=== PATIENT | female | born 1970 | race Caucasian/White ===

== ENCOUNTER 2016-11-15 17:10 | Emergency (ER) | payer MEDICAID ==
[~2016-11-15] VITALS: Ht 162.6 cm; Wt 101.2 kg
[2016-11-15 19:32] VITALS: BP 113/75
== END 2016-11-15 19:32 | disposition home or self-care (01) ==
LOC: ED 17:10
DX: K57.92 Diverticulitis of intestine, part unspecified, without perforation or abscess without bleeding (principal); R19.7 Diarrhea, unspecified; E66.9 Obesity, unspecified; I10 Essential (primary) hypertension
CPT/HCPCS: J0696

== ENCOUNTER 2017-01-12 20:31 | Emergency (ER) | payer MEDICAID ==
[2017-01-12 22:16] VITALS: BP 130/90
== END 2017-01-12 22:16 | disposition home or self-care (01) ==
LOC: ED 20:31
DX: N12 Tubulo-interstitial nephritis, not specified as acute or chronic (principal); I10 Essential (primary) hypertension; K57.90 Diverticulosis of intestine, part unspecified, without perforation or abscess without bleeding; K50.90 Crohn's disease, unspecified, without complications; J45.909 Unspecified asthma, uncomplicated; Z88.2 Allergy status to sulfonamides; Z79.1 Long term (current) use of non-steroidal anti-inflammatories (NSAID); Z87.442 Personal history of urinary calculi
CPT/HCPCS: J1885

== ENCOUNTER 2017-03-21 12:06 | Emergency (ER) | payer OTHER ==
[~2017-03-21] VITALS: Ht 165.1 cm; Wt 103.0 kg
[2017-03-21 13:43] VITALS: BP 142/78
== END 2017-03-21 13:43 | disposition home or self-care (01) ==
LOC: ED 12:06
DX: N39.0 Urinary tract infection, site not specified (principal); I10 Essential (primary) hypertension; Z90.49 Acquired absence of other specified parts of digestive tract; Z88.2 Allergy status to sulfonamides; Z87.19 Personal history of other diseases of the digestive system
CPT/HCPCS: J1885

== ENCOUNTER 2017-05-03 18:23 | Emergency (ER) | payer MEDICAID ==
[~2017-05-03] VITALS: Ht 162.6 cm; Wt 102.5 kg
[2017-05-03 19:58] LABS: UA SPECIFIC GRAVITY 1.015 (1.005-1.035); microscopic required? YES; urine erythrocyte TRACE (NEGATIVE)
[2017-05-03 20:55] VITALS: BP 103/74
== END 2017-05-03 20:55 | disposition home or self-care (01) ==
LOC: ED 18:23
PROVIDERS: Emergency Medicine
DX: R10.9 Unspecified abdominal pain (principal); I10 Essential (primary) hypertension; Z88.2 Allergy status to sulfonamides
CPT/HCPCS: J3010; Q0092; Q0162

== ENCOUNTER 2017-05-31 05:56 | Emergency (ER) | payer OTHER ==
[2017-05-31 07:14] VITALS: BP 120/76
== END 2017-05-31 07:14 | disposition home or self-care (01) ==
LOC: ED 05:56
DX: R10.32 Left lower quadrant pain (principal); R11.2 Nausea with vomiting, unspecified; R19.7 Diarrhea, unspecified; K50.90 Crohn's disease, unspecified, without complications; J45.909 Unspecified asthma, uncomplicated; I10 Essential (primary) hypertension; Z88.2 Allergy status to sulfonamides; Z90.89 Acquired absence of other organs
CPT/HCPCS: Q0162

== ENCOUNTER 2017-06-09 19:46 | Inpatient (IN) | payer OTHER ==
[~2017-06-09] VITALS: Ht 162.6 cm; Wt 104.9 kg
--- NOTE | 2017-06-09 22:25 | NUR ---
MSE COMPLETED BY DR CALABRESE
--- NOTE | 2017-06-09 22:47 | NUR ---
PT PICKED UP BY CT VIA GURNEY, NO SX OF DISTRESS NOTED.
[2017-06-09 23:00] LABS: UA SPECIFIC GRAVITY 1.015 (1.005-1.035); microscopic required? YES; urine erythrocyte NEGATIVE (NEGATIVE)
[2017-06-09 23:17] LABS: BASOPHIL % 0.9 % (0-2); PLATELET COUNT 365 x10^3mcL (130-400)
[2017-06-09 23:18] LABS: RED CELL DISTRIBUTION WIDTH 15.1 % (11.5-14.5)
[2017-06-09 23:28] LABS: CARBON DIOXIDE 28.9 mmol/L (21-32); CHLORIDE SERUM 103 mmol/L (98-107); CREATININE SERUM 0.8 mg/dL (0.6-1.0); GFR1 > 60 mL/min; GLUCOSE SERUM 105 mg/dL (74-106); POTASSIUM SERUM 3.9 mmol/L (3.5-5.1); SODIUM SERUM 139 mmol/L (136-145)
[2017-06-09 23:45] LABS: ALBUMIN 3.6 g/dL (3.4-5.0); ALKALINE PHOSPHATASE 76 U/L (46-116); ALT/SGPT 25 U/L (14-59); AST/SGOT 17 U/L (15-37); BILIRUBIN TOTAL 0.3 mg/dL (0.20-1.00); TOTAL PROTEIN, SERUM 7.5 g/dL (6.4-8.2)
[2017-06-09] MEDS ORDERED: LISINOPRIL2.5 MG PO (23:46)
[2017-06-09] MEDS ORDERED: OMEPRAZOLE10 M1 PO (23:46)
[2017-06-09] MEDS ORDERED: MICROZIDE12.5 MG PO (23:47)
[2017-06-10] VITALS (7 sets, daily range): BP systolic 95–111; BP diastolic 56–61
--- NOTE | 2017-06-10 00:23 | NUR ---
ADMISSION REPORT GIVEN TO ANITA DIAZ EXT [id number] TO CONTINUE CARE.
--- NOTE | 2017-06-10 00:45 | NUR ---
REC'D PT FROM ER VIA CARLI. PT IS AAOX4. TELE #23 SR. RESP EVEN AND UNLABORED. NO SOB NOTED. ABD SOFT. BS ACTIVE X4. PT DENIES ABD PAIN AT THIS TIME. PT C/O MILD NAUSEA. PT REPORTS HAVING DIARRHEA. IV NOTED TO . INTACT AND PATENT. ORIENTED PT TO CALL LIGHT. BED IN LOWEST POSITION. WILL ENDORSE TO PRIMARY RN.
--- NOTE | 2017-06-10 01:25 | NUR ---
PT COMFORTABLE AT THIS TIME, REMAINED NPO, IVF INFUSING NS @ 120CC/HR IV ACCESS LH PATENT NON INFIL, SCD'S APPLIED FOR DVT PROPHYLAXIS, SR IN THE MONITOR TELE #23, CALL LIGHT AT REACH, WILL CONT TO MONITOR.
[2017-06-10 02:01] LABS: MAGNESIUM 1.9 mg/dL (1.8-2.4); PHOSPHOROUS 3.3 mg/dL (2.5-4.9)
[2017-06-10 02:09] LABS: CHOLESTEROL/HDL RATIO 3.5
[2017-06-10 02:29] LABS: FREE T4 1.15 ng/dL (0.76-1.46); FREE THYROXINE INDEX 3.8 ug/dL (1.4-4.5); T4(THYROXINE) 11.6 ug/dL (4.7-13.3)
[2017-06-10 03:01] LABS: T3 TOTAL 1.22 ng/mL
[2017-06-10 05:46] LABS: AMPHETAMINE QUAL UR NONE DETECTED (NEG <=1000)
--- NOTE | 2017-06-10 06:13 | NUR ---
PT AWAKE C/O LOWER ABDL PAIN MOSTLY AT THE GROIN AREA, VOIDING FREELY NO HEMATURIA, PAIN SCALED 6/10 PER ASSESSMENT NORCO PO GIVEN PER PRN ORDER, REPOSITIONED SELF TO COMFORT V/S STABLE AND RECORDED, IVF INFUSING WELL SR IN THE MONITOR NO CP OR PRESSURE, WILL CONT TO MONITOR.
--- NOTE | 2017-06-10 07:45 | NUR ---
RECEIVED PATIENT FROM NIGHT NURSE. PATIENT SLEEPING, RESPIRATIONS REGULAR. MONITOR SHOWING SINUS RHYTHM; RATE 69. IV INFUSING NS AT 120ML/HR. NPO.
--- NOTE | 2017-06-10 10:18 | NUR ---
AT 0800 - PAITENT AWAKE, ALERT AND ORIENTED. PATIENT REPORTS GOOD RELIEF OF PAIN WITH NORCO. NO NAUSEA. AT 0825 - SEEN BY DR NICOLE DURING MORNING ROUNDS. MEDICAL TEAM DOCTORS, JULIA COX AND MYSELF PRIMARY NURSE ALSO PRESENT. DR NICOLE SPOKE WITH PATIENT ABOUT DX AND PLAN OF TREATMENT. PATIENT VERBALIZED UNDERSTANDING. COMMENCED ON ZOSYN. FIRST DOSE IN PROGRESS.
--- NOTE | 2017-06-10 13:50 | NUR ---
DIABETIC EDUCATION INITIATED. SPOKE WITH PATIENT ABOUT PREDIABTES AND DIET WELL DIVERTICULITIS AND DIVERTICULOSIS AND DIET. PRINTED INFORMATION PROVIDED. PATIENT EXPRESSED MOTIVATION FOR LIFESTYLE MODIFICATIONS.
--- NOTE | 2017-06-10 15:07 | NUR ---
cancellation requested for echocardiogram
--- NOTE | 2017-06-10 18:54 | NUR ---
VSS AND WNL. AFEBRILE. PAIN UNDER CONTROL WITH NORCO. IV INFUSION REMAINS AT 120ML/HR. REMAINS NPO EXCEPT MEDS. AMBULATORY TO BATHROOM FOR TOILET NEEDS. WILL ENDORSE CARE TO NIGHT NURSE.
--- NOTE | 2017-06-10 20:29 | NUR ---
DR BRAXTON OK'D PT TO HAVE FULL LIQ DIET TONIGHT, JELLO, JUICE OFFERED HERO WELL NO N/V, DENIES ABDL PAIN, IVF NS CHANGED TO 80CC/HR IV ACCESS @ LH PATENT NON INFIL, TELE #23 INPLACED SR IN THE MONITOR, NO CP OR PRESSURE, NO DISTRESS LUNGS CTA, SHIFT ASSESSMENT DONE, NEEDS MET, CALL LIGHT AT REACH, CONT TO MONITOR AND PROCEED TO CURRENT PLAN OF CARE.
--- NOTE | 2017-06-11 02:42 | NUR ---
PT ASLEEP NO S/SX OF PAIN OR DISCOMFORTS, BREATHING EASY AND SPONT, IVF INFUSING WELL NO INFIL, SCD'S OFF AT THIS TIME PER REQUEST, CHECKED AT INTERVALS.
[2017-06-11 05:01] VITALS: BP 100/60
[2017-06-11 06:03] LABS: BASOPHIL % 0.5 % (0-2); PLATELET COUNT 279 x10^3mcL (130-400); RED CELL DISTRIBUTION WIDTH 14.5 % (11.5-14.5)
--- NOTE | 2017-06-11 06:14 | NUR ---
NO SIGNIFICANT CHANGES DURING THE SHIFT, PER PT SHE SLEPT WELL LAST NIGHT AND SURPRISED NOT HAVING PAIN, IVF INFUSING WELL, DUE MEDS GIVEN, BS 105 MG/DL, SR IN THE MONITOR, CONT TO MONITOR.
--- NOTE | 2017-06-11 07:30 | NUR ---
PATIENT IS SITTING UP IN BED, AWAKE ALERT AND ORIENTED. TELE 23 NSR. IVF INFUSING WELL TO LEFT HAND. AMBULATES AD GEORGE TO THE BATHROOM DENIES ANY ABD PAIN OR DISCOMFORT. LUNGS CLEAR ON ROOM AIR. NO ACUTE DISTRESS NOTED. WILL CONTINUE TO MONITOR.
--- NOTE | 2017-06-11 08:07 | NUR ---
Pt REFUSED HHN TX AT THIS TIME. KNOWS TO CALL RESP IF SOB.
--- NOTE | 2017-06-11 08:12 | NUR ---
DR CHURCH AND MEDICAL TEAM INTO SEE PATIENT AND DISCUSS PLAN OF CARE.
[2017-06-11 09:57] VITALS: BP 119/47
--- NOTE | 2017-06-11 11:00 | NUR ---
I HAVE REVIEWED THE DATA COLLECTION BY RANULFO (NAME):CESAR ENTERED ON (DATE/TIME):06/11/1710/23/1099 AM I CONCUR WITH THE DATA AND ANY EXCEPTIONS OR COMMENTS ARE LISTED BELOW:
--- NOTE | 2017-06-11 11:00 | NUR ---
PATIENT'S PLAN OF CARE WAS DISCUSSED AND REVIEWED WITH SLUG PRESS OPERATOR:CESAR
--- NOTE | 2017-06-11 12:28 | NUR ---
PATIENT IS SITTING UP IN BED. ALERT ORIENTED, DENIES ANY ABD PAIN OR DISCOMFORT. IVF INFUSING WELL. PATIENT TO HAVE A REGULAR LUNCH TRAY FOR LUNCH. WILL CONTINUE TO MONITOR.
[2017-06-11] MEDS ORDERED: AUGMENTIN XR 11 EACH PO (13:29)
[2017-06-11] MEDS ORDERED: LAC PO (13:30)
[2017-06-11 13:53] VITALS: BP 120/71
--- NOTE | 2017-06-11 14:38 | NUR ---
PATIENT READY FOR D/C HOME HL AND TELE DC'D. DISCHARGE INSTRUCTIONS GIVEN. PERSONAL BELONGINGS LIST SIGNED.
== END 2017-06-11 14:45 | disposition home or self-care (01) | DRG 244 ==
LOC: ED 19:46 → DU 23:52
PROVIDERS: Emergency Medicine; Family Medicine Sports Medicine; ADMIT Family Medicine
DX: K57.32 Diverticulitis of large intestine without perforation or abscess without bleeding (principal); D68.69 Other thrombophilia; N39.0 Urinary tract infection, site not specified; K50.90 Crohn's disease, unspecified, without complications; R73.03 Prediabetes; I10 Essential (primary) hypertension; E66.01 Morbid (severe) obesity due to excess calories; Z87.442 Personal history of urinary calculi; Z68.39 Body mass index [BMI] 39.0-39.9, adult; N20.0 Calculus of kidney; N28.1 Cyst of kidney, acquired; J45.909 Unspecified asthma, uncomplicated
CPT/HCPCS: 83880; 84439; J2270; J2405; J2543; J7030; J7613

== ENCOUNTER 2018-04-22 17:35 | Emergency (ER) | payer OTHER ==
[~2018-04-22] VITALS: Ht 162.6 cm; Wt 96.6 kg
[~2018-04-22 17:35] MED LIST: AUGMENTIN XR 11 EACH PO; LAC PO; LISINOPRIL2.5 MG PO; MICROZIDE12.5 MG PO; OMEPRAZOLE10 M1 PO
[2018-04-22 17:43] VITALS: BP 115/80; Ht 162.6 cm; Wt 96.6 kg
== END 2018-04-22 18:19 | disposition home or self-care (01) ==
LOC: ED 17:35
DX: K57.92 Diverticulitis of intestine, part unspecified, without perforation or abscess without bleeding (principal); I10 Essential (primary) hypertension; K50.90 Crohn's disease, unspecified, without complications; Z88.2 Allergy status to sulfonamides

== ENCOUNTER 2018-09-29 08:47 | Emergency (ER) | payer OTHER ==
[~2018-09-29] VITALS: Ht 162.6 cm; Wt 95.3 kg
[2018-09-29 08:56] VITALS: BP 120/76; Ht 162.6 cm; Wt 95.3 kg
== END 2018-09-29 10:05 | disposition home or self-care (01) ==
LOC: ED 08:47
DX: N39.0 Urinary tract infection, site not specified (principal); I10 Essential (primary) hypertension; K50.90 Crohn's disease, unspecified, without complications; J45.909 Unspecified asthma, uncomplicated; Z87.442 Personal history of urinary calculi

== ENCOUNTER 2018-10-17 09:27 | Emergency (ER) | payer OTHER ==
[~2018-10-17] VITALS: Ht 162.6 cm; Wt 96.6 kg
[2018-10-17 10:00] VITALS: Ht 162.6 cm; Wt 96.6 kg
[2018-10-17 11:31] LABS: microscopic required? NO
[2018-10-17 11:44] LABS: urine erythrocyte NEGATIVE (NEGATIVE)
[2018-10-17 13:19] VITALS: BP 102/51
== END 2018-10-17 13:19 | disposition home or self-care (01) ==
LOC: ED 09:27
PROVIDERS: Emergency Medicine
DX: M54.5 Low back pain (principal); M43.07 Spondylolysis, lumbosacral region; M51.37 Other intervertebral disc degeneration, lumbosacral region; I10 Essential (primary) hypertension; N20.0 Calculus of kidney; K50.90 Crohn's disease, unspecified, without complications; J45.909 Unspecified asthma, uncomplicated; E66.9 Obesity, unspecified; Z68.36 Body mass index [BMI] 36.0-36.9, adult; Z87.442 Personal history of urinary calculi

== ENCOUNTER 2019-05-04 16:52 | Inpatient (IN) | payer OTHER ==
[~2019-05-04] VITALS: Ht 162.6 cm; Wt 99.6 kg
[2019-05-04 18:30] LABS: BASOPHIL % 0.5 % (0-2); PLATELET COUNT 322 x10^3mcL (130-400)
[2019-05-04 18:31] LABS: CALCIUM 9.1 mg/dL (8.5-10.1); CARBON DIOXIDE 25.2 mmol/L (21-32); CHLORIDE SERUM 105 mmol/L (98-107); CREATININE SERUM 0.8 mg/dL (0.6-1.0); GFR1 > 60 mL/min; GLUCOSE SERUM 109 mg/dL (74-106); POTASSIUM SERUM 3.7 mmol/L (3.5-5.1); SODIUM SERUM 141 mmol/L (136-145)
[2019-05-04 18:36] LABS: ALKALINE PHOSPHATASE 86 U/L (46-116); ALT/SGPT 31 U/L (14-59); AST/SGOT 20 U/L (15-37); BILIRUBIN TOTAL 0.2 mg/dL (0.20-1.00); LIPASE 303 IU/L (73-393); TOTAL PROTEIN, SERUM 8.1 g/dL (6.4-8.2)
--- NOTE | 2019-05-04 19:35 | NUR ---
PT CAME IN DUE TO C/O LOWER ABD PAIN SINCE WEDNESDAY, PT WITH HX OF DIVERTICULITIS, LAST TIME EAT AND DRINK WAS 1534, PT IS AAO X 4, BREATHING EVEN AND UNLABORED, NO SOB OR RESP DISTRESS NOTED, DENIES N/V/D, C/O RT KNEE PAIN AND LIMITED ROM, PT WAS ABLE TO MOVE HERSELF FROM WC TO GURNEY WITHOUT ANY INCIDENT. PENDING MSE.
--- NOTE | 2019-05-04 21:24 | NUR ---
DR JIMENEZ MADE AWARE OF PT STILL C/O OF ABD PAIN. AWAITING NEW ORDERS.
--- NOTE | 2019-05-04 23:02 | NUR ---
TORADOL 30MG VIA IVP ADMINISTERED FOR ABD PAIN.
[2019-05-04 23:43] LABS: microscopic required? YES; urine erythrocyte TRACE (NEGATIVE)
[2019-05-04 23:52] LABS: AMPHETAMINE QUAL UR NONE DETECTED (See below)
--- NOTE | 2019-05-05 00:01 | NUR ---
PT DENIED SHE TAKES ANY MEDS AT HOME.
--- NOTE | 2019-05-05 00:01 | NUR ---
REPORT CALLED AND GIVEN TO MARSHA, ALL QUESTIONS ANSWERED AND CONCERNS ADDRESSED.
[2019-05-05 00:12] LABS: CHOLESTEROL/HDL RATIO 4.8
--- NOTE | 2019-05-05 00:30 | NUR ---
RECEIVED PT FROM ED VIA CARLI, CAME IN DUE TO ABDOMINAL PAIN. AAOX4. DENIES HEADACHE/DIZZINESS. NO SOB NOTED, LUNG SOUNDS CTA. O2 SAT=97%, RA. DENIES CHEST PAIN/PRESSURE. C/O 8/10 LEFT ABDOMINAL PAIN RADIATING TO THE LEFT GROIN DESCRIBED STABBING. VOIDS FREELY, DENIES DYSURIA/BURNING SENSATION ON URINATION. IV SITE PATENT AND INTACT. SIDE RAILS UPX2. CALL LIGHT ON REACH. PRIMARY NURSE CODY AT BEDSIDE FOR CONTINUITY OF CARE
--- NOTE | 2019-05-05 00:31 | NUR ---
PATIENT ADMITTED FOR CHIEF COMPLAINT OF PAIN TO BLQ ABDOMINAL PAIN MORE PRONOUNCED TO LEFT SIDE RADIATING TO GROIN AREA. PATIENT RECEIVED VIA GUERNEY ACCOMPANIED BY EMT , PATIENT ASSISTED FROM GUERNEY TO BED, ACQUIANTED TO BEDSIDE EQUIPMENTS AND UNIT POLICIES, CALL LIGHT PLACED IN REACH,SAFETY PRECAUTIOBNS INITIATED. HEPLOCK TO LEFT FA INTACT GAUIGE 20, RE INFORCED TAPE. PATIENT IS ALERT AND ORIENTED X4 ABLE TO COMMUNICATE NEEDS . INFORMED PATIENT ABOUT POC THIS SHIFT. WILL CONTINUE TO MONITOR.
[2019-05-05 00:42] VITALS: BP 113/65
[2019-05-05 00:44] VITALS: Ht 162.6 cm; Wt 99.6 kg
--- NOTE | 2019-05-05 00:55 | NUR ---
PATIENT COMPLAINED OF ABDOMINAL PAIN THROBBING IN NATURE, RATED AT 8/10, MEDICATED PPRN, ALSO COMPLAINED OF FEELING NAUSEOUS, MEDICATED PRN. WILL CHECK EFFECTIVENESS.
--- NOTE | 2019-05-05 01:45 | NUR ---
PATIENT CHECKED THIS TIME, PATIENT SLEEPING [id number], PATIENT STATED PAIN IS SLOWLY SUBSIDING AT 2/10. WILL CONTINUE TO MONITOR.
[2019-05-05 05:05] VITALS: BP 91/48
[2019-05-05 05:33] VITALS: BP 97/55
--- NOTE | 2019-05-05 06:19 | NUR ---
PATIENT SLEPT GOOD AND RESTED WELL VERBALIZED SINCE ARRIVAL TO THE FLOOR, IV SITE NO SIGN OF INFILTRATION. WAS MEDICATED X 1 AND RECEIVED RELIEF. VOIDED BUT UNABLE TO COLLECT UAM, RE-INSTRUCTED. SAFETY PRECAUTIONS OBSERVED AND MAINTAINED. WILL ENDORSE CONTINUITY OF CARE TO INCOMING NURSE.
[2019-05-05 07:04] LABS: CALCIUM 8.1 mg/dL (8.5-10.1); CARBON DIOXIDE 24.2 mmol/L (21-32); CHLORIDE SERUM 109 mmol/L (98-107); CREATININE SERUM 0.9 mg/dL (0.6-1.0); GFR1 > 60 mL/min; GLUCOSE SERUM 107 mg/dL (74-106); POTASSIUM SERUM 3.8 mmol/L (3.5-5.1); SODIUM SERUM 143 mmol/L (136-145)
--- NOTE | 2019-05-05 07:19 | NUR ---
BEDSIDE REPORT AND INTRODUCTION PERFORMED WITH INCOMING NURSE MOIRA PONCE.
[2019-05-05 08:38] VITALS: BP 92/53
[2019-05-05 09:34] LABS: BASOPHIL % 0.4 % (0-2); PLATELET COUNT 290 x10^3mcL (130-400); RED CELL DISTRIBUTION WIDTH 14.1 % (11.5-14.5)
--- NOTE | 2019-05-05 10:12 | NUR ---
PATIENT SEEN AND SHE IS ASKINF OR FOOD. SHE HAS BEEN REPORTED TO HAVE EATTEN COOKIES THAT SHE HAD IN HER BAG. SHE HAS DIVERTICULITIS AD HAS ATE OREO COOKES AND NO ADVERSE REACTION NOTED. CAROLYN AHS DIMINISHED BUT CLEAR BREATH SOUNDS AND IS GROSSLY OBESE WITH PULSE SSTROGN TO LEIDY EXTREMTIES. [facility] VITALS AT THIS TIME AT 97.9, 71, 20, 97/55, 99%.PATIENT LASB NOTED ARE THE WBC AT 13.1, THE CA AT 8.1, AND [facility] WBC IN THE URINE AND BATERIA IS NOTED. SHE IS POSSITIVE FOR CANIBOIDS AND HAS BEEN WITH TRIGLYCERIDES AT 202 AND LIPACE AT 303. TH CHEST XRAY IS NEGATIVE AND PATIENT DENIES ANY STOMACH UPSET AT THIS TIME. WILL CONTINUE TO MONITOR.
[2019-05-05] MEDS ORDERED: LEVAQUIN750 MG PO (12:28)
[2019-05-05 12:56] VITALS: BP 92/53
--- NOTE | 2019-05-05 15:07 | NUR ---
DISCHARGED TO HOME WITH ALL [facility] ASND TO FOLLOW UP WITH PRIMARY DOCTOR THAT SHE HAS AN APPOINTMENT WITH ALREADY. SHE HAD IV REMOVED AND PATIENT HAS BEEN ADVISE TO FOLLOW THE DIVERTICULITIS AND DIVERTICULOSIS DIET INDICATED. NO DIS TRESS AT TIME OF DISCHARGE.
== END 2019-05-05 14:45 | disposition home or self-care (01) | DRG 244 ==
LOC: ED 16:52 → MU 23:19
PROVIDERS: Emergency Medicine; ADMIT General Practice
DX: K57.30 Diverticulosis of large intestine without perforation or abscess without bleeding (principal); E66.9 Obesity, unspecified; N39.0 Urinary tract infection, site not specified; I10 Essential (primary) hypertension; E78.5 Hyperlipidemia, unspecified; Z68.37 Body mass index [BMI] 37.0-37.9, adult; Z88.2 Allergy status to sulfonamides; Z90.49 Acquired absence of other specified parts of digestive tract; Z98.51 Tubal ligation status
CPT/HCPCS: 83880; C9113; G0378; J0696; J1885; J2270; J2405; J3010; J3490; J7030; J7060; Q0092